=== PATIENT | male | born 1970 | race Two or more races ===

== ENCOUNTER 2021-06-28 20:16 | Emergency (ER) | payer BC ==
[~2021-06-28] VITALS: Ht 175.3 cm; Wt 122.0 kg
[2021-06-28] MEDS ORDERED: ACETAMINOPHEN 500MG TABLET PO ONE (23:45)
[2021-06-29] VITALS: BP 145/91
== END 2021-06-29 01:31 | disposition home or self-care (01) ==
LOC: ER 20:16
DX: U07.1 COVID-19 (principal); E11.9 Type 2 diabetes mellitus without complications; E78.00 Pure hypercholesterolemia, unspecified; I10 Essential (primary) hypertension; Z88.0 Allergy status to penicillin
CPT/HCPCS: 93005; 99283; C9803; U0003; U0005